=== PATIENT | female | born 1970 | race Caucasian/White ===

== ENCOUNTER 2020-02-10 19:35 | Emergency (ER) | payer MEDICARE, OTHER, MEDICAID | END 2020-02-10 20:41 | disposition home or self-care (01) | LOC: ERS 19:35 | DX: R07.89 Other chest pain (principal); M10.9 Gout, unspecified; K21.9 Gastro-esophageal reflux disease without esophagitis; E03.9 Hypothyroidism, unspecified; F32.9 Major depressive disorder, single episode, unspecified ==